=== PATIENT | female | born 1980 | race Caucasian/White ===

== ENCOUNTER 2022-04-07 17:53 | Emergency (ER) | payer SELFPAY ==
[2022-04-07 18:43] LABS: BASOPHIL 0.2 % (0-2); EOSINOPHIL 1.1 % (0-5); LYMPHOCYTE 10.3 % (15-48); MCH 37.8 pg (25.0-31.0); MCHC 32.1 g/dL (32.0-36.0); MCV 117.6 fL (78.0-100.0); MONOCYTE 7.4 % (0-12); MPV 13.4 fL (6.0-9.5); NEUTROPHIL 72.1 % (41-80); NRBC 0.7; PLT 134 K/uL (150-400); RBC 1.19 M/uL (4.20-5.40); RDW 24.1 % (11.5-14.0)
[2022-04-07 18:45] LABS: INR 2.27 (0.9-1.2); PROTHROMBIN TIME 24.2 SECONDS (11.9-13.9)
[2022-04-07 18:46] LABS: PTT 64.9 SECONDS (24.9-34.6)
[2022-04-07 18:59] LABS: HGB 4.5 g/dl (12.5-16.0); WBC 46.4 K/uL (4.0-10.5)
[2022-04-07 19:09] LABS: ALBUMIN 1.7 g/dL (3.4-5.0); BUN/CREAT RATIO (CALC) 12.2 RATIO; CREATININE 5.58 mg/dL (0.51-0.95); GLOBULIN (CALCULATION) 2.3 g/dL; POTASSIUM 3.7 mmol/L (3.5-5.1)
[2022-04-07 19:10] LABS: BILIRUBIN - TOTAL 32.5 mg/dL (0.2-1.0); LACTIC ACID 5.4 mmol/L (0.4-1.9)
== END 2022-04-07 20:56 | disposition other institution (70) ==
LOC: FER 17:53
PROVIDERS: Emergency Medicine
DX: A41.9 Sepsis, unspecified organism (principal); R65.21 Severe sepsis with septic shock; E11.22 Type 2 diabetes mellitus with diabetic chronic kidney disease; N18.6 End stage renal disease; D63.1 Anemia in chronic kidney disease; F10.20 Alcohol dependence, uncomplicated; Z99.2 Dependence on renal dialysis; Z88.0 Allergy status to penicillin; Z88.2 Allergy status to sulfonamides; Z20.822 Contact with and (suspected) exposure to COVID-19
CPT/HCPCS: 36415; 70450; 71250; 80053; 82140; 83605; 83690; 84145; 85025; 85610; 85730; 86850; 86900; 86901; 86922; 87040; 93005; 96365; 96367; 96368; 96375; G0480; J2354; J2543; J3370; J7040; J7050; U0002